=== PATIENT | male | born 1950 | race Caucasian/White ===

== ENCOUNTER 2020-03-26 07:39 | Day surgery (SDC) | payer MEDICARE ==
[~2020-03-26] VITALS: Ht 172.7 cm; Wt 109.3 kg
[~2020-03-26 07:39] MED LIST: Norco 5-325 Ta1 EACH PO
--- NOTE | 2020-03-26 09:17 | NUR ---
03/26/20 0917 Lydia Arreola History, Chart, Medications and Allergies reviewed before start of procedure.MONITOR INTACT WITH CONTINUOUS PULSE OXIMETRY AND INTERMITTENT BP.3-LEAD EKG REVIEWED WITH PHYSICIAN PRIOR TO START OF PROCEDURE.O2 VIA N/C INTACT THROUGHOUT SEDATION/PROCEDURE.
--- NOTE | 2020-03-26 09:47 | NUR ---
Patient up to Ambulate independently. Gait steady. Discharge instructions reviewed with patient. Patient verbalizes understanding. Copy given to patient to take home. Discharged via wheelchair to private car for ride home.
== END 2020-03-26 22:55 | disposition home or self-care (01) ==
LOC: ORSCMMR 07:39 → ORD 08:30 → ORSCMMR 22:55
PROVIDERS: Internal Medicine Gastroenterology
PROC: 0DBH8ZX Excision of Cecum, Via Natural or Artificial Opening Endoscopic, Diagnostic (ICD-10-PCS; principal; 2020-03-26 08:30)
PROC: 0DBN8ZX Excision of Sigmoid Colon, Via Natural or Artificial Opening Endoscopic, Diagnostic (ICD-10-PCS; principal; 2020-03-26 08:30)
DX: Z12.11 Encounter for screening for malignant neoplasm of colon (principal); Z86.010 Personal history of colon polyps; D12.5 Benign neoplasm of sigmoid colon; D12.0 Benign neoplasm of cecum; K57.30 Diverticulosis of large intestine without perforation or abscess without bleeding; E66.9 Obesity, unspecified; Z68.36 Body mass index [BMI] 36.0-36.9, adult
CPT/HCPCS: 88305; J2704; J7120

== ENCOUNTER 2020-09-25 18:23 | Inpatient (IN) | payer MEDICARE ==
[~2020-09-25] VITALS: Ht 172.7 cm; Wt 107.5 kg
[2020-09-25 19:09] LABS: EOSINOPHILS PERCENT AUTO 1 % (0-6); IMMATURE GRAN ABSOLUTE AUTO 0.11 K/mm3 (0.00-0.10); IMMATURE GRAN PERCENT AUTO 1 % (0-1); RDW Coefficient Variation 13.9 % (11.7-14.2); RDW Standard Deviation 44.9 fL (35.1-46.3); Red Blood Cell Count 5.13 M/mm3 (4.30-5.90)
[2020-09-25 19:21] LABS: BASOPHILS ABSOLUTE AUTO 0.04 K/mm3 (0.00-0.23); BASOPHILS PERCENT AUTO 0 % (0-2); EOSINOPHILS ABSOLUTE AUTO 0.08 K/mm3 (0.00-0.68); Hematocrit 45.1 % (37.0-53.0); Hemoglobin 14.7 g/dL (13.5-17.5); LYMPHOCYTES ABSOLUTE AUTO 1.53 K/mm3 (0.84-5.20); LYMPHOCYTES PERCENT AUTO 13 % (21-46); MONOCYTES ABSOLUTE AUTO 0.95 K/mm3 (0.16-1.47); MONOCYTES PERCENT AUTO 8 % (4-13); Mean Corpuscular HGB 28.7 pg (26.0-34.0); Mean Corpuscular HGB Conc 32.6 g/dL (31.5-36.5); Mean Corpuscular Volume 88 fL (80-100); Mean Platelet Volume 9.5 fL (9.1-12.4); NEUTROPHILS ABSOLUTE AUTO 9.19 K/mm3 (1.96-9.15); NEUTROPHILS PERCENT AUTO 77 % (41-73); Platelet Count 189 K/mm3 (150-400)
[2020-09-25 19:36] LABS: Alanine Aminotransfer (ALT/SGP 34 U/L (12-78); Albumin, Blood 3.5 g/dL (3.4-5.0); Albumin/Globulin Ratio 0.8 (0.8-1.8); Alk Phos 97 U/L (50-136); Anion Gap 6 mmol/L (6-16); Aspartate Aminotrans (AST/SGOT 25 U/L (12-37); Blood Urea Nitrogen 17 mg/dL (8-24); Bun/Creatinine Ratio 17.6 (12.0-20.0); CO2, Blood 23 mmol/L (21-32); Chloride, Blood 107 mmol/L (98-108); Creatinine, Blood 0.97 mg/dL (0.60-1.20); Globulin, Blood 4.3 g/dL (2.2-4.0); Glomerular Filtration Rate >60 (60-); Glucose, Blood 112 mg/dL (70-99); Potassium, Blood 4.1 mmol/L (3.5-5.5); Sodium, Blood 136 mmol/L (136-145); Total Protein, Blood 7.8 g/dL (6.4-8.2)
[2020-09-25 23:53] LABS: Source, Urine Clean Catch
[2020-09-25 23:56] LABS: Bilirubin, Urine Neg (Neg); Blood, Urine 3+ (Neg); Glucose Qualitative, Urine Neg (Neg); Ketones, Urine Neg (Neg); Leukocyte Esterase, Urine 1+ (Neg); Nitrite, Urine Neg (Neg); Protein, Urine Neg (Neg); Specific Gravity, Urine 1.015 (1.003-1.022); Urobilinogen, Urine 1+ (Normal)
[2020-09-25 23:57] LABS: Appearance, Urine Clear (Clear); Color, Urine Yellow (P-Yellow)
[2020-09-26 00:05] LABS: Bacteria Rare /hpf; Red Blood Cells, Urine Not Seen /hpf (0-2); Squamous Epithelial Cells Few /hpf (Few); White Blood Cells, Urine Rare /hpf (0-5)
--- NOTE | 2020-09-26 00:07 | NUR ---
RECIEVED REPORT FROM SVITLANA VAUGHN FROM ED AT 0005. PT TO ROOM 211.
--- NOTE | 2020-09-26 01:22 | NUR ---
ARRIVED FROM ED 0005 PT ARRIVED FROM ED FOR SUSANNA. AOX4. VSS. PT DENIES PAIN. TENDER ON RIGHT ABD REGION. PT ALSO DENIES N/V. NPO AT MIDNIGHT. COVID SWAB OBTAINED AND SENT TO LAB. IV ON R HAND INFUSING WITH NS AT 150ML/HR AND A DOSE OF UNASYN COMPLETED X1. PT DENIES CP, SOB, N/T. ORIENT IN ROOM. CALL LIGHT WITHIN REACH. PT INDEPENDENT IN ROOM. PLEASANT AND COMFORTABLE IN BED.
[2020-09-26 01:32] LABS: Influenza A, PCR NEGATIVE (NEGATIVE); Influenza B, PCR NEGATIVE (NEGATIVE); Resp Syncytial Virus, PCR NEGATIVE (NEGATIVE); SARS-Cov-2 (COVID-19) PCR, MMC NEGATIVE (NEGATIVE)
--- NOTE | 2020-09-26 03:25 | NUR ---
SHIFT SUMMARY NO ACUTE CHANGES AT THIS TIME. PT SLEEPING IN ROOM, COMFORTABLE IN BED. DENIES PAIN AND NAUSEA AT THIS TIME. INDEPENDENT IN ROOM. IV NS INFUSING. CALL LIGHT W/IN REACH. WILL CONTINUE TO MONITOR PT. REPORT WILL BE GIVEN TO ONCOMING NURSE.
--- NOTE | 2020-09-26 16:31 | NUR ---
SHIFT SUMMARY PT A/OX4. VSS/RA. S/P LAP SUSANNA, 4 SITES, GAUZE C/D/I. DENIES PAIN AT THIS TIME. TOLERATING PO INTAKE. AMBULATES INDEPENDENT TO BRP. VOIDING WELL. IVF AT 125 ML/HR, ANTIBIOTICS ORDERED PER EMAR. WILL REPORT TO ONCOMING RN.
--- NOTE | 2020-09-27 06:43 | NUR ---
SHIFT SUMMARY: POD#1 SUSANNA LAP,GANGRENOUS DRESSINGSX4 C/D/I W/ CHAO TO RLQ DRAINING WELL BLOOD DRAINAGE, ABX AMPILLICILLIN W/ LR @125HR,PT IS A&OX4 DENIES PAIN, INDEPENDENT OOB TO VOID, RESTING COMFORTABLY CALL LIGHT WITHIN REACH.
[2020-09-27] MEDS ORDERED: Amoxicillin500 MG PO (10:56)
[2020-09-27] MEDS ORDERED: HYDR1TAB94 PO (10:56)
--- NOTE | 2020-09-27 14:47 | NUR ---
DISCHARGE SUMMARY PT A&OX4, VSS, ASHLEY PO, VOIDING WELL, DENIES NEED FOR PAIN MEDICATION PRIOR TO DC. DC INSTRUCTIONS PROVIDED. PT REP UNDERSTANDING THOSE INSTRUCTIONS INCLUDING NO LIFTING >20 LBS, WEAR ABDOMINAL BINDER, PAIN MANAGEMENT, FOLLOW UP WITH SURGEON. PT REMOVED IV HIMSELF WHILE ALONE IN ROOM, I FOUND IT SITTING ON BEDSIDE TABLE WHEN I ENTERED ROOM.
== END 2020-09-27 11:45 | disposition home or self-care (01) | DRG 419 ==
LOC: ER 18:23 → SURS 09-26 00:04
PROVIDERS: Physician Assistant; Student in an Organized Health Care Education/Training Program; ADMIT Surgery
PROC: BF532Z0 Other Imaging of Gallbladder and Bile Ducts using Fluorescing Agent, Intraoperative (ICD-10-PCS; 2020-09-26)
PROC: 0FT44ZZ Resection of Gallbladder, Percutaneous Endoscopic Approach (ICD-10-PCS; principal; 2020-09-26 11:15)
DX: K80.00 Calculus of gallbladder with acute cholecystitis without obstruction (principal); Z20.822 Contact with and (suspected) exposure to COVID-19; F17.220 Nicotine dependence, chewing tobacco, uncomplicated; K57.30 Diverticulosis of large intestine without perforation or abscess without bleeding
CPT/HCPCS: 0241U; 36415; 74177; 74300; 76705; 80053; 81001; 83690; 85025; 88305; 93005; 93010; 96365-59; 96375; 99285-25; A9270; C1729; J0295; J1100; J1885; J2250; J2405; J2704; J3010; J7030; J7120; Q9967

== ENCOUNTER → 2022-11-12 | Outpatient (CLI) | payer MEDICARE ==
[~2022-11-12] MED LIST changes: +Amoxicillin500 MG PO; +FLUT1DIS2 INH; +HYDR1TAB94 PO
== END | disposition home or self-care (01) ==
LOC: LAB SHORT 14:40
DX: L02.91 Cutaneous abscess, unspecified (principal)
CPT/HCPCS: 87070; 87147; 87205

== ENCOUNTER → 2022-11-29 | Outpatient (CLI) | payer MEDICARE | END | disposition home or self-care (01) | LOC: LAB 17:10 → LAB SHORT 17:10 | DX: L02.416 Cutaneous abscess of left lower limb (principal) | CPT/HCPCS: 87070; 87147; 87205 ==

== ENCOUNTER → 2023-05-22 | Outpatient (CLI) | payer MEDICARE ==
[2023-05-22 20:10] LABS: Albumin, Blood 3.5 g/dL (3.4-5.0); Albumin/Globulin Ratio 0.9 (0.8-1.8); Bilirubin, Total 0.8 mg/dL (0.1-1.0); Bun/Creatinine Ratio 20.2 (12.0-20.0); Calcium, Blood 8.9 mg/dL (8.5-10.1); Creatinine, Blood 0.94 mg/dL (0.60-1.20); Globulin, Blood 3.9 g/dL (2.2-4.0); Potassium, Blood 4.1 mmol/L (3.5-5.5); Total Protein, Blood 7.4 g/dL (6.4-8.2)
[2023-05-23 09:45] LABS: BASOPHILS ABSOLUTE AUTO 0.04 K/mm3 (0.00-0.23); BASOPHILS PERCENT AUTO 0 % (0-2); EOSINOPHILS ABSOLUTE AUTO 0.55 K/mm3 (0.00-0.68); EOSINOPHILS PERCENT AUTO 6 % (0-6); Hematocrit 48.6 % (37.0-53.0); Hemoglobin 15.9 g/dL (13.5-17.5); IMMATURE GRAN ABSOLUTE AUTO 0.06 K/mm3 (0.00-0.10); IMMATURE GRAN PERCENT AUTO 1 % (0-1); LYMPHOCYTES ABSOLUTE AUTO 1.22 K/mm3 (0.84-5.20); LYMPHOCYTES PERCENT AUTO 13 % (21-46); MONOCYTES ABSOLUTE AUTO 0.51 K/mm3 (0.16-1.47); MONOCYTES PERCENT AUTO 6 % (4-13); Mean Corpuscular HGB 29.5 pg (26.0-34.0); Mean Corpuscular HGB Conc 32.7 g/dL (31.5-36.5); Mean Corpuscular Volume 90 fL (80-100); Mean Platelet Volume 11.1 fL (9.1-12.4); NEUTROPHILS ABSOLUTE AUTO 6.97 K/mm3 (1.96-9.15); NEUTROPHILS PERCENT AUTO 75 % (41-73); Platelet Count 110 K/mm3 (150-400); RDW Coefficient Variation 14.9 % (11.7-14.2); RDW Standard Deviation 48.7 fL (35.1-46.3); Red Blood Cell Count 5.39 M/mm3 (4.30-5.90); White Blood Cell Count 9.35 K/mm3 (4.00-11.30)
[2023-05-23 11:32] LABS: C-Reactive Protein, High Sens. 23.8 mg/L (0.000-3.000)
== END | disposition home or self-care (01) ==
LOC: LAB SHORT 14:55 → LAB 14:55
PROVIDERS: Family Medicine
DX: L20.9 Atopic dermatitis, unspecified (principal)
CPT/HCPCS: 80053; 85025; 85651; 86141

== ENCOUNTER 2023-07-17 14:03 | Emergency (ER) | payer OTHER, MEDICARE ==
[~2023-07-17] VITALS: Ht 172.7 cm; Wt 106.6 kg
[2023-07-17 14:17] VITALS: BP 103/71
== END 2023-07-17 16:59 | disposition home or self-care (01) ==
LOC: ER 14:03
DX: M79.661 Pain in right lower leg (principal); M79.662 Pain in left lower leg; V58.2XXA Person on outside of pick-up truck or van injured in noncollision transport accident in nontraffic accident, initial encounter; Y92.828 Other wilderness area as the place of occurrence of the external cause; Y93.89 Activity, other specified
CPT/HCPCS: 73590; 96372; 99283-25; J1885

== ENCOUNTER → 2024-02-05 | Outpatient (CLI) | payer MEDICARE ==
[2024-02-08 10:36] LABS: QUANTIFERON MITOGEN MINUS NIL 9.97 IU/mL; QUANTIFERON NIL 0.03 IU/mL; QUANTIFERON PLUS TB1 MINUS NIL 0.01 IU/mL (<=0.34)
== END | disposition home or self-care (01) ==
LOC: LAB SHORT 18:36 → LAB 18:36
PROVIDERS: Family Medicine
DX: Z20.1 Contact with and (suspected) exposure to tuberculosis (principal)
CPT/HCPCS: 86480

== ENCOUNTER 2024-06-10 11:16 | Emergency (ER) | payer MEDICARE ==
[~2024-06-10] VITALS: Ht 172.7 cm; Wt 104.3 kg
[2024-06-10 12:22] VITALS: BP 143/95
== END 2024-06-10 14:26 | disposition home or self-care (01) ==
LOC: ER 11:16
DX: S89.92XA Unspecified injury of left lower leg, initial encounter (principal); X58.XXXA Exposure to other specified factors, initial encounter
CPT/HCPCS: 73562-LT; 99283-25

== ENCOUNTER 2024-09-02 07:19 | Day surgery (SDC) | payer MEDICARE ==
[2024-09-02] VITALS (9 sets, daily range): BP systolic 110–142; BP diastolic 59–89
[~2024-09-02] VITALS: Ht 170.2 cm; Wt 105.0 kg
[~2024-09-02 07:19] MED LIST changes: +Acetaminophen 500 MG Tab PO SCH; +CeFAZolin Sodium 2,000 MG in NS 100 ML IV SCH; +Chlorhexidine Mouth Care 15 ML UDC MT SCH; +Lactated Ringer's 1,000 ML IV SCH; +OxyCODONE HCL 10 MG TABCR PO SCH; +Ropivacaine 0.5% HCl/Pf 123.125 MG,EPINEPHrine HCL 0.25 MG,Ketorolac Tromethamine 15 MG... INFIL SCH; +Tranexamic Acid 1,000 MG in NS 100 ML IV SCH; +Tranexamic Acid 100 ML IV SCH; +[UNRECOGNIZED DRUG - REMARK] PO
[2024-09-02] MEDS ORDERED: propofoL 20 ML IV ONE (07:25)
[2024-09-02] MEDS ORDERED: Midazolam HCl 1MG / ML 2ML Vial ONE (07:29)
[2024-09-02] MEDS ORDERED: FentaNYL Citrate 50 MCG/ML 2 ML Injection ONE ×2 (07:29→10:16)
--- NOTE | 2024-09-02 08:10 | NUR ---
PT STS HE WAS DIAGNOSED WITH PNEUMONIA 08/26/24; TOOK 5 DAY PRESCRIPTION OF ABX. ANESTHESIOLOGIST & SURGEONS ALL NOTIFIED. PT DENIES SOB BUT CONSISTENT COUGH PRODUCING THICK WHITE PHLEGM. LUNGS COARSE, DIM. PT HAS DX OF COPD & RAD, BUT NO LONGER USES INHALER. STS HE HAS NEO BUT NO CPAP MACHINE.
[2024-09-02] MEDS ORDERED: OxyCODONE HCL 5 MG TAB PO PRN ×2 (08:25→08:35)
[2024-09-02] MEDS ORDERED: Metoclopramide HCl 5MG / ML 2ML Vial IV PRN (08:25)
[2024-09-02] MEDS ORDERED: Magnesium Hydroxide Conc 10 ML UDC PO PRN (08:25)
[2024-09-02] MEDS ORDERED: Ondansetron HCl 2 MG / ML 2ML Vial IV PRN (08:25)
[2024-09-02] MEDS ORDERED: Lactated Ringer's 1,000 ML IV SCH (08:25)
[2024-09-02] MEDS ORDERED: DiphenhydrAMINE HCL 25 MG Cap PO PRN (08:30)
[2024-09-02] MEDS ORDERED: FLU VACC TS2024-25(6MOS UP)/PF 45 MCG/0.5 ML SYRINGE IM SCH (08:30)
[2024-09-02] MEDS ORDERED: HYDROmorphone HCl/Pf 1MG SYR IV PRN (08:30)
[2024-09-02] MEDS ORDERED: Promethazine HCl 25 MG Tab PO PRN (08:35)
[2024-09-02] MEDS ORDERED: Bisacodyl 10 MG Supp PR PRN (08:35)
--- NOTE | 2024-09-02 08:44 | NUR ---
EMESIS BAG PROVIDED TO PT FOR CONSISTENT COUGH, PRODUCING PHLEGM IN SDS. ANESTHESIOLOGIST & SURGEON BOTH IN AGREEMENT TO PROCEED.
--- NOTE | 2024-09-02 08:57 | NUR ---
PERIDEX MOUTH RINSE IN SDS ADMINISTERED, WHEN COMPLETE CUP HAD SIGNIFICANT AMOUNTS OF TOBACCO CHEW RESIDUE IN CUP. OR ACCOUNT LEADER & MD NOTIFIED.
--- NOTE | 2024-09-02 08:59 | NUR ---
History, Chart, Medications and Allergies reviewed before start of procedure. Patient up to Ambulate independently. Gait steady. Pre-Op teaching done. Pt verbalizes understanding. Patient confirms NPO status and agrees with scheduled surgery. Patient reports completing Chlorhexadine shower X2 prior to admission to hospital. Surgical site prepped with 2% Chlorhexidine cloth wipe. Patient States Post-Procedure ride home has been arranged.
[2024-09-02] MEDS ORDERED: Ketorolac Tromethamine 15mg Vial IV SCH (12:00)
--- NOTE | 2024-09-02 14:00 | NUR ---
THERAPY: PT IN ROOM TO WORK WITH PATIENT. PT CONT TO DENY PAIN. WILL CONT TO MONITOR.
[2024-09-02] MEDS ORDERED: Acetaminophen 500 MG Tab PO SCH (16:00)
[2024-09-02] MEDS ORDERED: ACET500 PO (16:05)
[2024-09-02] MEDS ORDERED: ASPI81CH PO (16:06)
[2024-09-02] MEDS ORDERED: DOCU100 PO (16:07)
[2024-09-02] MEDS ORDERED: OXAYDO5 M1 PO (16:08)
[2024-09-02] MEDS ORDERED: CeFAZolin Sodium 2,000 MG in NS 100 ML IV SCH (17:00)
--- NOTE | 2024-09-02 17:12 | NUR ---
DISCHARGE: PT DC TO HOME AT THIS TIME. PT HAS HAD NO PAIN. ABLE TO AMBULATE HALLWAYS WITH THERAPY AND GET UP IN ROOM WITH STAFF. VERBALIZED UNDERSTANDING OF INSTRUCTIONS, MEDICATIONS, FOLLOW UP AND PROBLEMS TO REPORT. PT PULLED OWN IV, PT HAS VOIDED AND IS TOLERATING DIET. STATES SHE HAS ALREADY PICKED UP PRESCRIBED MEDS. LEFT VIA WHEELCHAIR TO CAR WITH BELONGINGS AND DRESSING SUPPLIES.
[2024-09-02] MEDS ORDERED: Docusate Sodium 100 MG Cap PO SCH (21:00)
[2024-09-03] MEDS ORDERED: Aspirin 81 MG Chew PO SCH (09:00)
== END 2024-09-02 16:44 | disposition home or self-care (01) ==
LOC: ORSCMMR 07:19 → ORD 08:30 → ORSCMMR 08:30 → SURS 11:19 → ORSCMMR 16:44
PROVIDERS: Orthopaedic Surgery
PROC: 0SRD0JA Replacement of Left Knee Joint with Synthetic Substitute, Uncemented, Open Approach (ICD-10-PCS; principal; 2024-09-02 08:30)
DX: M17.12 Unilateral primary osteoarthritis, left knee (principal); F17.220 Nicotine dependence, chewing tobacco, uncomplicated; Z79.899 Other long term (current) drug therapy
CPT/HCPCS: 73560-LT; 97110; 97116; 97162; A9270; C1713; C1776; C1887; J0171; J0690; J0735; J1885; J2250; J2704; J2795; J3010; J7120

== ENCOUNTER 2024-09-04 02:45 | Emergency (ER) | payer MEDICARE ==
[~2024-09-04] VITALS: Ht 172.7 cm; Wt 106.6 kg
[~2024-09-04 02:45] MED LIST changes: +ACET500 PO; +ASPI81CH PO; -Acetaminophen 500 MG Tab PO SCH; -CeFAZolin Sodium 2,000 MG in NS 100 ML IV SCH; -Chlorhexidine Mouth Care 15 ML UDC MT SCH; +DOCU100 PO; -Lactated Ringer's 1,000 ML IV SCH; +OXAYDO5 M1 PO; -OxyCODONE HCL 10 MG TABCR PO SCH; -Ropivacaine 0.5% HCl/Pf 123.125 MG,EPINEPHrine HCL 0.25 MG,Ketorolac Tromethamine 15 MG... INFIL SCH; -Tranexamic Acid 1,000 MG in NS 100 ML IV SCH; -Tranexamic Acid 100 ML IV SCH
[2024-09-04 03:14] VITALS: BP 158/76
[2024-09-04] MEDS ORDERED: Ondansetron HCl 2 MG / ML 2ML Vial IV ONE (03:20)
[2024-09-04] MEDS ORDERED: Morphine Sulfate 4 MG/1 ML Injection IV ONE (03:20)
[2024-09-04] MEDS ORDERED: Metoclopramide HCl 5MG / ML 2ML Vial IV ONE (04:40)
[2024-09-04] MEDS ORDERED: ONDA4ODT MM (04:44)
[2024-09-04] MEDS ORDERED: RX Prepack 2 Tabs Ondansetron ODT 4MG UD ONE (04:45)
[2024-09-04] MEDS ORDERED: FentaNYL Citrate 50 MCG/ML 2 ML Injection IV ONE (04:55)
== END 2024-09-04 06:02 | disposition home or self-care (01) ==
LOC: ER 02:45
DX: G89.18 Other acute postprocedural pain (principal); M25.562 Pain in left knee; Z79.1 Long term (current) use of non-steroidal anti-inflammatories (NSAID); Z79.82 Long term (current) use of aspirin; Z79.83 Long term (current) use of bisphosphonates; Z79.891 Long term (current) use of opiate analgesic
CPT/HCPCS: 96374; 96375; 99283-25; A9270; J2270; J2405; J2765; J3010

== ENCOUNTER → 2025-04-09 | Outpatient (CLI) | payer MEDICARE ==
[~2025-04-09] MED LIST changes: +ONDA4ODT MM
[2025-04-09 10:05] LABS: BASOPHILS ABSOLUTE AUTO 0.03 K/mm3 (0.00-0.23); BASOPHILS PERCENT AUTO 0 % (0-2); EOSINOPHILS ABSOLUTE AUTO 0.06 K/mm3 (0.00-0.68); EOSINOPHILS PERCENT AUTO 1 % (0-6); Hematocrit 44.4 % (37.0-53.0); Hemoglobin 14.8 g/dL (13.5-17.5); IMMATURE GRAN ABSOLUTE AUTO 0.04 K/mm3 (0.00-0.10); IMMATURE GRAN PERCENT AUTO 1 % (0-1); LYMPHOCYTES ABSOLUTE AUTO 1.56 K/mm3 (0.84-5.20); LYMPHOCYTES PERCENT AUTO 23 % (21-46); MONOCYTES ABSOLUTE AUTO 0.36 K/mm3 (0.16-1.47); MONOCYTES PERCENT AUTO 5 % (4-13); Mean Corpuscular HGB Conc 33.3 g/dL (31.5-36.5); Mean Corpuscular Volume 87 fL (80-100); NEUTROPHILS ABSOLUTE AUTO 4.71 K/mm3 (1.96-9.15); NEUTROPHILS PERCENT AUTO 70 % (41-73); NRBC ABSOLUTE 0.00 K/mm3 (0.00-0.02); NRBC Auto 0.0 /100 WBC (0.0-0.2); Platelet Count 164 K/mm3 (150-400); RDW Coefficient Variation 14.6 % (11.7-14.2); RDW Standard Deviation 46.3 fL (35.1-46.3)
[2025-04-09 10:20] LABS: Alanine Aminotransfer (ALT/SGP 15.0 U/L (12-78); Albumin, Blood 3.8 g/dL (3.4-5.0); Albumin/Globulin Ratio 1.1 (0.8-1.8); Anion Gap 13.0 mmol/L (6-16); Aspartate Aminotrans (AST/SGOT 18.0 U/L (12-37); Bilirubin, Total 0.5 mg/dL (0.1-1.0); Blood Urea Nitrogen 12.0 mg/dL (8-24); CO2, Blood 28.0 mmol/L (21-32); Calcium, Blood 9.3 mg/dL (8.5-10.1); Chloride, Blood 104.0 mmol/L (98-108); Creatinine, Blood 1.0 mg/dL (0.60-1.20); Globulin, Blood 3.6 g/dL (2.2-4.0); Glucose, Blood 101.0 mg/dL (70-99); Potassium, Blood 4.0 mmol/L (3.5-5.5); Sodium, Blood 141.0 mmol/L (136-145); Total Protein, Blood 7.4 g/dL (6.4-8.2)
== END ==
LOC: LAB SHORT 10:01 → LAB 10:01
PROVIDERS: Family Medicine
DX: E80.6 Other disorders of bilirubin metabolism (principal)
CPT/HCPCS: 80053; 85025